=== PATIENT | male | born 1970 | race Caucasian/White ===

== ENCOUNTER 2016-06-25 22:00 | Inpatient (IN) | payer SELFPAY ==
--- NOTE | ~2016-06-25 | HP ---
History And Physical [place] [id number] [facility] [place]. [address] NAME: LYN NICOLE : 74 STATUS : ADM IN PAT#: [id number] AGE: 46 ADM/REG DATE : 06/26/16 MR#: [id number] REPORT SERV DATE: 06/26/16 DICTATED BY: JUAN العلي DATE: 06/26/16 REPORT STATUS : Draft TRANSCRIBED BY: MODL DATE: 06/26/16 DATE OF ADMISSION: 06/25/2016 CHIEF COMPLAINT: Hand and feet numbness. HISTORY OF PRESENT ILLNESS: This is a 46-year-old gentleman with history of hypertension, who is not being treated for hypertension as an outpatient with no outpatient followup, presenting with hands and feet numbness. The patient reports that he was feeling relatively fine up until yesterday when he started having numbness and tingling and tightness in his hands and feet. The patient also had some shortness of breath and he felt like he could not take a deep breath. His symptoms were significant enough that he decided to come to the ER for further evaluation and care. Otherwise, the patient denies having had any neurologic changes including blurry vision. The patient also denies having had any chest pain, palpitations. The patient normally has chronic headaches but the patient actually did not have any headache today. In the ER, patient was found to be extremely hypertensive with blood pressure of 262/161. The patient was otherwise hemodynamically stable, and the patient's neurologic exam was nonfocal. Initial lab evaluation was actually fairly benign with mild renal insufficiency and mild hypokalemia. Rest of the labs were all benign. EKG was nondiagnostic. The patient was started on Cardizem drip and Internal Medicine consultation was requested for admission of the patient for further evaluation and care. REVIEW OF SYSTEMS: The patient denies any fevers or chills. Also, 14-point review of systems reviewed and negative other than mentioned above. MEDICATIONS: None, although patient historically has been on clonidine, hydrochlorothiazide, and Benicar. ALLERGIES: NKDA. PAST MEDICAL HISTORY: 1. Hypertension, for which patient is not being treated. The patient has not seen a physician for over two years, and the patient has been off medications for over two years. Again, the patient has been on hydrochlorothiazide, Benicar, and clonidine, when he did follow up with a physician in the past. 2. Obstructive sleep apnea, on CPAP. PAST SURGICAL HISTORY: Appendectomy. FAMILY HISTORY: 1. Hypertension. 2. Diabetes. SOCIAL HISTORY: The patient does not smoke, drink alcohol, or use any illicit drugs. The patient lives at home with his , who is at bedside here in the ER. The patient works at [address] [address] NAME: LYN NICOLE : 74 STATUS : ADM IN [facility]#: [id number] AGE: 46 ADM/REG DATE : 06/26/16 MR#: [id number] REPORT SERV DATE: 06/26/16 DICTATED BY: JUAN العلي DATE: 06/26/16 REPORT STATUS : Draft TRANSCRIBED BY: RENATE DATE: 06/26/16 pest control. PHYSICAL EXAMINATION: VITAL SIGNS: Temperature 98.4, blood pressure 262/161, which improved to 160s over 100s on Cardene drip. Pulse 88, respiratory rate is 22, saturating 97% on room air. NEUROLOGIC: Patient is alert and oriented x3 with no focal neurologic deficits. The patient is awake, does not appear to be in acute distress, and he is cooperative. NECK: No JVD. No lymphadenopathy. Normal thyroid. CHEST: No midline sternotomy scar and no tenderness to palpation. LUNGS: Clear to auscultation bilaterally with normal respiratory effort on room air. CARDIOVASCULAR: Regular rate and rhythm with no murmurs, rubs, or gallops, and PMI is nondisplaced. ABDOMEN: Soft, nontender, with active bowel sounds and no organomegaly. EXTREMITIES: No edema. Normal distal pulses. No calf tenderness. SKIN: Clean, dry, warm, and intact. LABORATORY DATA: Sodium is 143, potassium 3.2, chloride 105, BUN 19, creatinine 1.39, glucose 104, calcium 9.0, magnesium 2.0. White blood cell count is 9.0, hemoglobin 14.5, and platelets 277. INR is 1.1. Troponin is 0.03. Chest x-ray is personally interpreted, and it shows cardiomegaly. EKG shows normal sinus rhythm with no obvious ischemic changes. ASSESSMENT: This is a 46-year-old gentleman with history of hypertension, who is not being treated and not being followed as an outpatient presenting with a hypertensive emergency. 1. Hypertensive emergency. 2. Renal insufficiency. 3. Hypokalemia. 4. Obstructive sleep apnea, on CPAP. PLAN: The plan is to admit the patient into the IMCU. The patient will be continued on Cardene drip. The patient will be closely monitored under telemetry. I will start p.o. antihypertensives, and I will check labs to include serial troponins, TSH, electrolytes, and urinalysis. I will also check an echocardiogram as well as renal ultrasounds. Otherwise, for the rest of stable past medical conditions, including obstructive sleep apnea, I will continue home medications. Standard DVT prophylaxis. The patient is full code at this time. YSC/MODL Juan العلي MD / [id number]
--- NOTE | ~2016-06-25 | DS ---
Discharge Summary [id number] [place]. [address] NAME: LYN CASTORENA : 74 STATUS : DIS IN PAT#: [id number] AGE: 46 ADM/REG DATE : 06/26/16 MR#: [id number] REPORT SERV DATE: 06/28/16 DICTATED BY: REGINA ROBB DATE: 06/27/16 REPORT STATUS : Draft TRANSCRIBED BY: MODL DATE: 06/27/16 ADMISSION DATE: 06/26/2016 DISCHARGE DATE: 06/27/2016 REASON FOR ADMISSION: Hypertensive emergency. HISTORY OF PRESENT ILLNESS: Please refer to Dr. Haynes's history and physical dated 06/26/2016 for complete details around the patient's admission. In brief, the patient was admitted to the intermediate care unit for his hypertensive emergency. HOSPITAL COURSE: The patient had an uncomplicated hospital course. He was started on a Cardene drip and transferred to the intermediate care unit under the care of Dr. Patino who had controlled his blood pressure appropriately. He had started the patient on hydrochlorothiazide and amlodipine after weaning him off a Cardene drip and then transferred to the floor. I assumed care of this patient on on June 27 after which his systolic blood pressure readings were in the 130s to 160s on oral regimen. He had a renal ultrasound which showed the kidneys are symmetric, nonobstructive, no evidence of renal artery stenosis. He had an echocardiogram showing moderate left ventricular hypertrophy with a normal EF, no valvular disease. The patient has reached maximal hospitalization. He does complain of a headache, but it could be secondary to blood pressure. We talked about blood pressure management, and he will follow up with outpatient PCP in a week to get a blood pressure check. The patient reached maximal hospitalization and discharged today in stable condition. DISCHARGE DIAGNOSES: 1. Hypertensive emergency, now controlled. 2. Headaches could be secondary to blood pressure versus migraines. 3. Hypertensive heart disease. 4. Acute kidney injury, now resolved. 5. Obstructive sleep apnea, on CPAP. 6. Morbid obesity. PROCEDURES: Include a 2D echocardiogram, renal artery ultrasound, intensive care unit monitoring. DISCHARGE MEDICATIONS: Include amlodipine 10 mg once a day, hydrochlorothiazide 25 mg daily, aspirin 81 mg daily. The patient will follow up with PCP in one week. This is Dr. Regina Robb spending over 30 minutes on discharge planning and coordination of care on Ms. Castorena. MURPHY/RENATE Discharge Summary [address] [place] [address] NAME: LYN CASTORENA : 74 STATUS : DIS IN PAT#: [id number] AGE: 46 ADM/REG DATE : 06/26/16 MR#: [id number] REPORT SERV DATE: 06/28/16 DICTATED BY: REGINA ROBB DATE: 06/27/16 REPORT STATUS : Draft TRANSCRIBED BY: RENATE DATE: 06/27/16 Regina Robb MD / [id number] CC: Lexus Patino M.D.
[~2016-06-25 22:00] MED LIST: PT DENIES HOME MEDS
[2016-06-25 22:42] LABS: BASOPHILS 0.8 %; BASOPHILS ABSOLUTE 0.07 10/3/uL (0.0-0.16); EOSINOPHILS 1.8 %; EOSINOPHILS ABSOLUTE 0.16 10/3/uL (0.0-0.53); ER CBC TAT 0 Hrs 09 Mins; HEMOGLOBIN 14.5 g/dL (13.6-17.8); IMMATURE GRANULOCYTES 0.4 %; IMMATURE GRANULOCYTES ABSOLUTE 0.04 10/3/uL (0.0-0.11); LYMPHOCYTES ABSOLUTE 2.79 10/3/uL (0.67-4.30); MEAN CORPUS HGB CONC 35.1 g/dL (32.0-36.0); MEAN CORPUSCULAR HEMOGLOB 29.7 pg (26.0-34.0); MEAN CORPUSCULAR VOLUME 84.5 fL (80-100); MEAN PLATELET VOLUME 10.5 fL (9.2-13.0); MONOCYTES 6.7 %; NEUTROPHILS 59.3 %; NEUTROPHILS ABSOLUTE 5.35 10/3/uL (2.02-8.40); PLATELET COUNT 277 10/3/uL (150-400); RBC DISTRIBUTION WIDTH 13.4 % (12.0-16.0); RED CELL COUNT 4.89 10/6/uL (4.7-6.1)
[2016-06-25 22:45] LABS: HEMATOCRIT 41.3 % (40.0-51.0); MANUAL DIFF NO %
[2016-06-25 22:56] LABS: INTERNATIONAL NORMAL RATI 1.1 UNITS (-); PARTIAL THROMBO TIME 27.7 SEC (22.5-37.2); PROTIME (NOT ORD) 13.6 SEC (12.0-14.5)
[2016-06-25 23:02] LABS: CHEST PAIN PROFILE TAT 0 Hrs 29 Mins; CHLORIDE, SERUM 105 MMOL/L (96-112); CREATININE 1.39 MG/DL (0.70-1.30); GFR AFRICAN AMERICAN 71 ML/MIN (>=60); GFR NON AFRICAN AMERICAN 61 ML/MIN (>=60); GLUCOSE, SERUM 104 MG/DL (60-99); POTASSIUM, SERUM 3.2 MMOL/L (3.5-5.3); SODIUM, SERUM 143 MMOL/L (135-148); TROPONIN I 0.03 NG/ML (<0.05)
[2016-06-25 23:04] LABS: BUN (BLOOD UREA NITROGEN) 19 MG/DL (6-23); CO2 (CARBON DIOXIDE) 31 MMOL/L (24-34)
[2016-06-26] MEDS ORDERED: ASAB PO (05:27)
[2016-06-26] MEDS ORDERED: EXCEDRIN EXTRA1 EACH PO (05:27)
[2016-06-26 09:28] LABS: BASOPHILS 0.4 %; BASOPHILS ABSOLUTE 0.04 10/3/uL (0.0-0.16); EOSINOPHILS 1.3 %; EOSINOPHILS ABSOLUTE 0.12 10/3/uL (0.0-0.53); ER CBC TAT 0 Hrs 05 Mins; HEMATOCRIT 41.7 % (40.0-51.0); HEMOGLOBIN 14.3 g/dL (13.6-17.8); IMMATURE GRANULOCYTES 0.4 %; IMMATURE GRANULOCYTES ABSOLUTE 0.04 10/3/uL (0.0-0.11); LYMPHOCYTES 21.7 %; LYMPHOCYTES ABSOLUTE 2.01 10/3/uL (0.67-4.30); MEAN CORPUS HGB CONC 34.3 g/dL (32.0-36.0); MEAN CORPUSCULAR HEMOGLOB 28.1 pg (26.0-34.0); MEAN CORPUSCULAR VOLUME 82.1 fL (80-100); MEAN PLATELET VOLUME 10.7 fL (9.2-13.0); MONOCYTES 4.9 %; MONOCYTES ABSOLUTE 0.45 10/3/uL (0.21-1.20); NEUTROPHILS 71.3 %; NEUTROPHILS ABSOLUTE 6.59 10/3/uL (2.02-8.40); PLATELET COUNT 270 10/3/uL (150-400); RBC DISTRIBUTION WIDTH 13.4 % (12.0-16.0); RED CELL COUNT 5.08 10/6/uL (4.7-6.1); WHITE BLOOD CELLS 9.3 10/3/uL (4.5-10.5)
[2016-06-26 09:30] LABS: MANUAL DIFF NO %
[2016-06-26 09:44] LABS: BUN (BLOOD UREA NITROGEN) 17 MG/DL (6-23); CALCIUM, SERUM 8.8 MG/DL (8.5-10.4); CHLORIDE, SERUM 105 MMOL/L (96-112); CHOLESTEROL 199 MG/DL (< 200); CREATININE 1.18 MG/DL (0.70-1.30); GFR AFRICAN AMERICAN 86 ML/MIN (>=60); GFR NON AFRICAN AMERICAN 75 ML/MIN (>=60); GLUCOSE, SERUM 103 MG/DL (60-99); POTASSIUM, SERUM 3.7 MMOL/L (3.5-5.3); SODIUM, SERUM 142 MMOL/L (135-148)
[2016-06-26 09:45] LABS: CHOL/HDL RATIO(NOT ORDER) 4.9 (0-5); CO2 (CARBON DIOXIDE) 25 MMOL/L (24-34); HDL CHOLESTEROL 41 MG/DL (> 39); LDL CHOLESTEROL 138 MG/DL (< 130); NON-HDL CHOLESTEROL 158 MG/DL (< 160); TRIGLYCERIDE 103 MG/DL (< 150)
[2016-06-27] MEDS ORDERED: NORV10 PO (11:40)
[2016-06-27] MEDS ORDERED: HYDROCHLOROT25 MG PO (11:41)
== END 2016-06-27 14:09 | disposition home or self-care (01) | DRG 305 ==
LOC: ER 22:00 → ER/OF 06-26 05:43 → 7NO 06-26 09:32
PROVIDERS: Emergency Medicine; Internal Medicine
DX: I16.1 Hypertensive emergency (principal); N17.9 Acute kidney failure, unspecified; I13.10 Hypertensive heart and chronic kidney disease without heart failure, with stage 1 through stage 4 chronic kidney disease, or unspecified chronic kidney disease; N18.3 Chronic kidney disease, stage 3 (moderate); R51 Headache; G47.33 Obstructive sleep apnea (adult) (pediatric); E66.01 Morbid (severe) obesity due to excess calories; Z68.35 Body mass index [BMI] 35.0-35.9, adult; Z79.82 Long term (current) use of aspirin; Z82.49 Family history of ischemic heart disease and other diseases of the circulatory system; Z83.3 Family history of diabetes mellitus
CPT/HCPCS: 71010; 76775; 80048; 80061; 83735; 84443; 84484; 85025; 85610; 85730; 93005; 93975; 96365; 96375; 99285; A9270-GY; C8929; J0360; Q9957